=== PATIENT | male | born 1985 | race Caucasian/White ===

== ENCOUNTER 2021-09-22 15:55 | Emergency (ER) | payer OTHER, BC | END 2021-09-22 17:09 | disposition home or self-care (01) | LOC: MW.ED 15:55 | DX: S87.81XA Crushing injury of right lower leg, initial encounter (principal); Z88.0 Allergy status to penicillin; Z88.2 Allergy status to sulfonamides; Z88.7 Allergy status to serum and vaccine; W01.198A Fall on same level from slipping, tripping and stumbling with subsequent striking against other object, initial encounter; Y99.0 Civilian activity done for income or pay | CPT/HCPCS: 73590-26-RT; 73590-RT; 99283; 99283-25 ==

== ENCOUNTER 2023-05-16 22:07 | Inpatient (IN) | payer BC, OTHER ==
[2023-05-16 22:22] LABS: HEMATOCRIT 42.5 % (42.0-52.0); HEMOGLOBIN 14.9 g/dL (14.0-18.0); MEAN CORPUSCULAR HEMOGLOBIN 31.7 pg (28.0-32.0); MEAN CORPUSCULAR HGB CONC 35.1 g/dL (32.0-36.0); MEAN CORPUSCULAR VOLUME 90.4 fL (83.0-99.0); MEAN PLATELET VOLUME 10.4 fL (9.4-12.4); PLATELET COUNT,PLT 147 K/uL (150-400); WHITE BLOOD CELL COUNT,WBC 14.34 K/uL (3.9-11.3)
[2023-05-16] MEDS ORDERED: Sodium Chloride 0.9% 1,000 ML IV ONE (22:27)
[2023-05-16 22:28] LABS: APPEARANCE,URINE CLEAR; COLOR,URINE YELLOW; GLUCOSE,URINE NEGATIVE (NEGATIVE); KETONES,URINE TRACE mg/dL (NEGATIVE); LEUKOCYTE ESTERASE,URINE NEGATIVE (NEGATIVE); NITRITE,URINE NEGATIVE (NEGATIVE); OCCULT BLOOD,URINE NEGATIVE (NEGATIVE); PROTEIN,URINE TRACE mg/dL (NEGATIVE); UROBILINOGEN,URINE >=8.0 EU/dL (<2.0)
[2023-05-16 22:35] LABS: BACTERIA,URINE FEW (NEGATIVE); BILIRUBIN,URINE LARGE (NEGATIVE); EPITHELIAL CELLS,URINE RARE (NONE-FEW); RBC,URINE 0-1 (0-2/HPF); WBC,URINE 0-3 (0-5/HPF)
[2023-05-16] MEDS ORDERED: Acetaminophen 500 MG Tab PO ONE (22:38)
[2023-05-16 22:49] LABS: A/G RATIO 1.2 (0.9-1.6); ALBUMIN 3.8 g/dL (3.4-5.0); BILIRUBIN TOTAL 3.2 mg/dL (0.2-1.0); CALCIUM 8.6 mg/dL (8.5-10.1); CREATININE 1.2 mg/dL (0.8-1.3); EST CRCL DRUG DOSING (CG) 88.9 mL/min; POTASSIUM,K 4.1 mmol/L (3.5-5.1); PROTEIN TOTAL,TP 6.9 g/dL (6.4-8.2)
[2023-05-16 23:08] LABS: CORONAVIRUS COVID-19 NAA NEGATIVE (NEGATIVE); INFLUENZA A NAA NEGATIVE (NEGATIVE); INFLUENZA B NAA NEGATIVE (NEGATIVE); RESPIRATORY SYNCYTIAL VIR NAA NEGATIVE (NEGATIVE)
[2023-05-16] MEDS ORDERED: Ketorolac 30 MG/ML SDV IVPUSH STA (23:16)
[2023-05-17] MEDS ORDERED: metroNIDAZOLE/Normal Saline 500 MG in Premix Bag 1 BAG IV SCH (00:14)
[2023-05-17] MEDS ORDERED: Ciprofloxacin in D5W 400 MG in Premix Bag 1 BAG IV SCH ×2 (00:15)
[2023-05-17] MEDS ORDERED: Ondansetron 4 MG/2 ML SDV IVPUSH ONE (01:33)
[2023-05-17 01:38] LABS: INR 1.15 (0.86-1.11)
[2023-05-17] MEDS ORDERED: Sodium Chloride 0.9% 10 ML Syringe FLUSH PRN (01:40)
[2023-05-17] MEDS ORDERED: Sodium Chloride 0.9% 2.5 ML Syringe FLUSH PRN (01:40)
[2023-05-17] MEDS ORDERED: Albuterol/Ipratropium 3.0-0.5 MG/3 ML Neb Soln NEB PRN (01:40)
[2023-05-17] MEDS ORDERED: Sodium Chloride 0.9% 20 ML SDV IV PRN (01:40)
[2023-05-17] MEDS ORDERED: Ondansetron 4 MG/2 ML SDV IVPUSH PRN (01:40)
[2023-05-17] MEDS ORDERED: Acetaminophen 325 MG Tab PO PRN (01:40)
[2023-05-17] MEDS ORDERED: Promethazine 25 MG/ML SDV IM PRN (01:40)
[2023-05-17] MEDS ORDERED: Lactated Ringers 1,000 ML IV SCH (01:45)
[2023-05-17] MEDS ORDERED: VANCOmycin 2 GM/400 ML 2 GM in Premix Bag 1 BAG IV ONE (02:30)
[2023-05-17] MEDS: Pantoprazole 40 MG in Sodium Chloride 0.9% 10 ML IVPUSH SCH ×2 (02:59→14:45)
[2023-05-17] MEDS: Lactated Ringers 1,000 ML IV SCH ×2 (06:26→16:44)
[2023-05-17 06:56] LABS: A/G RATIO 1.1 (0.9-1.6); ALBUMIN 2.9 g/dL (3.4-5.0); BILIRUBIN TOTAL 2.9 mg/dL (0.2-1.0); CALCIUM 8.1 mg/dL (8.5-10.1); CREATININE 1.1 mg/dL (0.8-1.3); EST CRCL DRUG DOSING (CG) 96.98 mL/min; MAGNESIUM 1.7 mg/dL (1.8-2.4); PHOSPHORUS 2.3 mg/dL (2.6-4.7); POTASSIUM,K 4.3 mmol/L (3.5-5.1); PROTEIN TOTAL,TP 5.6 g/dL (6.4-8.2)
[2023-05-17 07:10] LABS: HEMATOCRIT 37.1 % (42.0-52.0); MEAN CORPUSCULAR HEMOGLOBIN 31.8 pg (28.0-32.0); MEAN CORPUSCULAR VOLUME 90.7 fL (83.0-99.0); MEAN PLATELET VOLUME 10.9 fL (9.4-12.4); RED BLOOD CELL COUNT 4.09 M/uL (4.52-5.90); WHITE BLOOD CELL COUNT,WBC 9.55 K/uL (3.9-11.3)
[2023-05-17 07:12] LABS: PLATELET COUNT,PLT 186 K/uL (150-400)
[2023-05-17 07:14] LABS: BAND ABSOLUTE MAN 1.2; BAND PERCENT MAN 13 %; LYMPHOCYTES ABSOLUTE MAN 5.4 (0.6-2.4); LYMPHOCYTES PERCENT MAN 57 % (16.0-40.0); MONOCYTES PERCENT MAN 10 % (0.0-15.0); SEG NEUTROPHILS ABSOLUTE MAN 1.9 (1.4-5.7); SEG NEUTROPHILS PERCENT MAN 20 % (48.0-80.0)
[2023-05-17] MEDS ORDERED: Magnesium Sulfate/Water 2 GM in Premix Bag 1 BAG IV ONE (08:00)
[2023-05-17] MEDS: Ketorolac 30 MG/ML SDV IV PRN ×2 (08:42→17:42)
[2023-05-17] MEDS ORDERED: Cefepime 2 GM in Sodium Chloride 0.9% 50 ML IV SCH (09:00)
[2023-05-17] MEDS: metroNIDAZOLE/Normal Saline 500 MG in Premix Bag 1 BAG IV SCH ×3 (12:18→23:23)
[2023-05-17] MEDS: cefTRIAXone 1 GM in Sodium Chloride 0.9% 50 ML IV SCH (20:20)
[2023-05-18] MEDS: Pantoprazole 40 MG in Sodium Chloride 0.9% 10 ML IVPUSH SCH (01:13)
[2023-05-18] MEDS: Lactated Ringers 1,000 ML IV SCH ×2 (03:50→14:00)
[2023-05-18] MEDS: metroNIDAZOLE/Normal Saline 500 MG in Premix Bag 1 BAG IV SCH ×3 (05:06→21:49)
[2023-05-18 05:32] LABS: HEMATOCRIT 38.2 % (42.0-52.0); HEMOGLOBIN 13.3 g/dL (14.0-18.0); MEAN CORPUSCULAR HEMOGLOBIN 31.3 pg (28.0-32.0); MEAN CORPUSCULAR HGB CONC 34.8 g/dL (32.0-36.0); MEAN CORPUSCULAR VOLUME 89.9 fL (83.0-99.0); MEAN PLATELET VOLUME 10.3 fL (9.4-12.4); PLATELET COUNT,PLT 135 K/uL (150-400); RED BLOOD CELL COUNT 4.25 M/uL (4.52-5.90); WHITE BLOOD CELL COUNT,WBC 10.78 K/uL (3.9-11.3)
[2023-05-18 05:51] LABS: INR 1.22 (0.86-1.11)
[2023-05-18 05:53] LABS: ALBUMIN 2.7 g/dL (3.4-5.0); CALCIUM 7.8 mg/dL (8.5-10.1); CARBON DIOXIDE,CO2 26.3 mmol/L (21.0-32.0); EST CRCL DRUG DOSING (CG) 106.68 mL/min; POTASSIUM,K 4.3 mmol/L (3.5-5.1); PROTEIN TOTAL,TP 5.5 g/dL (6.4-8.2)
[2023-05-18 06:20] LABS: BAND ABSOLUTE MAN 0.11; BAND PERCENT MAN 1 %; SEG NEUTROPHILS ABSOLUTE MAN 3.13 K/uL (1.80-7.70); SEG NEUTROPHILS PERCENT MAN 29 % (41-71)
[2023-05-18 06:21] LABS: EOSINOPHILS ABSOLUTE MAN 0.11 K/uL (0.00-0.45); EOSINOPHILS PERCENT MAN 1 % (0-6); MONOCYTES ABSOLUTE MAN 1.29 K/uL (0.00-0.80); MONOCYTES PERCENT MAN 12 % (0-8)
[2023-05-18 06:22] LABS: LYMPHOCYTES ABSOLUTE MAN 6.14 K/uL (1.00-4.80); LYMPHOCYTES PERCENT MAN 57 % (24-44)
[2023-05-18 09:07] LABS: NEUTROPHILS% 28 % (41-71)
[2023-05-18] MEDS: Ketorolac 30 MG/ML SDV IV PRN (19:41)
[2023-05-18] MEDS ORDERED: Pantoprazole 40 MG in Sodium Chloride 0.9% 10 ML IVPUSH SCH (21:00)
[2023-05-18] MEDS: cefTRIAXone 1 GM in Sodium Chloride 0.9% 50 ML IV SCH (21:49)
[2023-05-19] MEDS: Lactated Ringers 1,000 ML IV SCH (01:01)
[2023-05-19 07:06] LABS: A/G RATIO 0.9 (0.9-1.6); ALBUMIN 2.6 g/dL (3.4-5.0); BILIRUBIN TOTAL 4.2 mg/dL (0.2-1.0); CALCIUM 7.7 mg/dL (8.5-10.1); CARBON DIOXIDE,CO2 27.5 mmol/L (21.0-32.0); EST CRCL DRUG DOSING (CG) 106.68 mL/min; PROTEIN TOTAL,TP 5.4 g/dL (6.4-8.2)
[2023-05-19 07:24] LABS: INR 1.17 (0.86-1.11)
[2023-05-19 07:32] LABS: HEMOGLOBIN 13.6 g/dL (14.0-18.0); MEAN CORPUSCULAR HEMOGLOBIN 31.3 pg (28.0-32.0); MEAN CORPUSCULAR HGB CONC 34.9 g/dL (32.0-36.0); MEAN CORPUSCULAR VOLUME 89.9 fL (83.0-99.0); MEAN PLATELET VOLUME 10.4 fL (9.4-12.4); PLATELET COUNT,PLT 157 K/uL (150-400); RED BLOOD CELL COUNT 4.34 M/uL (4.52-5.90); WHITE BLOOD CELL COUNT,WBC 13.39 K/uL (3.9-11.3)
[2023-05-19 07:52] LABS: POTASSIUM,K 4.4 mmol/L (3.5-5.1)
[2023-05-19 08:10] LABS: LYMPHOCYTES ABSOLUTE MAN 7.36 K/uL (1.00-4.80); LYMPHOCYTES PERCENT MAN 55 % (24-44); MONOCYTES ABSOLUTE MAN 1.61 K/uL (0.00-0.80); MONOCYTES PERCENT MAN 12 % (0-8); REACTIVE LYMPHOCYTES MANY; SEG NEUTROPHILS ABSOLUTE MAN 4.42 K/uL (1.80-7.70); SEG NEUTROPHILS PERCENT MAN 33 % (41-71)
[2023-05-19 12:07] LABS: HBSAG SCREEN Negative (Negative); HCV AB Non Reactive (Non Reactive); HEP A AB, IGM Negative (Negative); HEP B CORE AB, IGM Negative (Negative)
== END 2023-05-19 12:55 | disposition home or self-care (01) ==
LOC: MW.ED 22:07 → MW.MS 05-17 01:34 → OBSVTOIN 05-17 01:34 → MW.MS 05-18 13:35
PROVIDERS: ADMIT Family Medicine; ATTEND Family Medicine
DX: B17.9 Acute viral hepatitis, unspecified (principal); B27.90 Infectious mononucleosis, unspecified without complication; R16.0 Hepatomegaly, not elsewhere classified; I10 Essential (primary) hypertension; K76.0 Fatty (change of) liver, not elsewhere classified; R74.01 Elevation of levels of liver transaminase levels; R50.9 Fever, unspecified; E80.6 Other disorders of bilirubin metabolism; K29.80 Duodenitis without bleeding; K27.9 Peptic ulcer, site unspecified, unspecified as acute or chronic, without hemorrhage or perforation; Z90.49 Acquired absence of other specified parts of digestive tract; Z11.52 Encounter for screening for COVID-19; Z88.0 Allergy status to penicillin; Z88.8 Allergy status to other drugs, medicaments and biological substances; Z91.041 Radiographic dye allergy status; Z88.5 Allergy status to narcotic agent; Z88.2 Allergy status to sulfonamides; Z88.7 Allergy status to serum and vaccine; Z91.018 Allergy to other foods; Z98.890 Other specified postprocedural states
CPT/HCPCS: 0241U; 36415; 74176; 74176-26; 74181; 74181-26; 76705; 76705-26; 80053; 80061; 80074; 81001; 82947; 83605; 83690; 83735; 84100; 85025; 85610; 86308; 87389; 96361; 96365; 96366; 96367; 96368; 96375; 96376; 99284; 99285-25; A9270-GY; C9113; G0378; J0692; J0696; J0744; J1885; J2405; J3370; J3475; J3490; J7030; J7120

== ENCOUNTER 2023-05-19 17:37 | Emergency (ER) | payer BC ==
[2023-05-19] MEDS ORDERED: Ondansetron 4 MG/2 ML SDV IVPUSH ONE (18:35)
[2023-05-19] MEDS ORDERED: Sodium Chloride 0.9% 1,000 ML IV ONE ×2 (18:35→20:01)
[2023-05-19] MEDS ORDERED: Ketorolac 30 MG/ML SDV IVPUSH ONE (18:35)
[2023-05-19 19:15] LABS: HEMATOCRIT 39.6 % (42.0-52.0); HEMOGLOBIN 13.7 g/dL (14.0-18.0); MEAN CORPUSCULAR HEMOGLOBIN 31.3 pg (28.0-32.0); MEAN CORPUSCULAR HGB CONC 34.6 g/dL (32.0-36.0); MEAN CORPUSCULAR VOLUME 90.4 fL (83.0-99.0); MEAN PLATELET VOLUME 10.3 fL (9.4-12.4); PLATELET COUNT,PLT 162 K/uL (150-400); RED BLOOD CELL COUNT 4.38 M/uL (4.52-5.90)
[2023-05-19 19:43] LABS: ALBUMIN 2.8 g/dL (3.4-5.0); BILIRUBIN TOTAL 4.5 mg/dL (0.2-1.0); CALCIUM 7.9 mg/dL (8.5-10.1); CARBON DIOXIDE,CO2 29.1 mmol/L (21.0-32.0); CREATININE 1.1 mg/dL (0.8-1.3); EST CRCL DRUG DOSING (CG) 96.98 mL/min; MAGNESIUM 2.1 mg/dL (1.8-2.4); POTASSIUM,K 4.3 mmol/L (3.5-5.1); PROTEIN TOTAL,TP 5.7 g/dL (6.4-8.2)
[2023-05-19 19:49] LABS: BAND PERCENT MAN 5 %
[2023-05-19 19:50] LABS: LYMPHOCYTES % ATYPICAL MANUAL 5; MONOCYTES ABSOLUTE MAN 1.26 K/uL (0.00-0.80); MONOCYTES PERCENT MAN 9 % (0-8); SEG NEUTROPHILS PERCENT MAN 25 % (41-71)
[2023-05-19 19:51] LABS: LYMPHOCYTES ABSOLUTE MAN 7.84 K/uL (1.00-4.80); LYMPHOCYTES PERCENT MAN 56 % (24-44)
[2023-05-19] MEDS ORDERED: diphenhydrAMINE 50 MG/ML SDV IVPUSH ONE (20:11)
[2023-05-19] MEDS ORDERED: methylPREDNISolone Sodium Succinate 125 MG/2 ML SDV IVPUSH ONE (20:11)
[2023-05-19] MEDS ORDERED: Iopamidol 755 MG/ML 500 ML Multipack Bottle IVPUSH ONE (22:38)
[2023-05-20] MEDS ORDERED: Ondansetron 4 MG/2 ML SDV IVPUSH ONE (00:37)
== END 2023-05-20 01:00 | disposition home or self-care (01) ==
LOC: MW.ED 17:37
DX: B27.90 Infectious mononucleosis, unspecified without complication (principal); K75.9 Inflammatory liver disease, unspecified; Z88.0 Allergy status to penicillin; Z88.1 Allergy status to other antibiotic agents; Z88.8 Allergy status to other drugs, medicaments and biological substances; Z91.018 Allergy to other foods; Z91.048 Other nonmedicinal substance allergy status; Z88.5 Allergy status to narcotic agent; Z88.7 Allergy status to serum and vaccine; Z88.2 Allergy status to sulfonamides
CPT/HCPCS: 36415; 74177; 80053; 83690; 83735; 85025; 96361; 96374; 96375; 96376; 99285; J1200; J1885; J2405; J2930; J7030; Q9967

== ENCOUNTER 2023-09-06 23:10 | Emergency (ER) | payer BC ==
[2023-09-06] MEDS: Sodium Chloride 0.9% 1,000 ML IV ONE (23:16)
[2023-09-06] MEDS: EPINEPHrine 1 MG/1 ML Amp IM ONE (23:16)
[2023-09-06] MEDS: Sodium Chloride 0.9% 10 ML Syringe FLUSH PRN (23:19)
[2023-09-06] MEDS: EPINEPHrine 1 MG/1 ML Amp ONE (23:19)
[2023-09-06] MEDS: Sodium Chloride 0.9% 2.5 ML Syringe FLUSH PRN (23:19)
[2023-09-06] MEDS: Ondansetron 4 MG/2 ML SDV IVPUSH ONE (23:21)
[2023-09-06] MEDS: methylPREDNISolone Sodium Succinate 125 MG/2 ML SDV IVPUSH ONE (23:21)
[2023-09-06] MEDS: Famotidine 20 MG/2 ML SDV IVPUSH ONE (23:21)
[2023-09-06 23:23] LABS: BASOPHILS ABSOLUTE AUTO 0.05 K/uL (0.00-0.20); BASOPHILS PERCENT AUTO 0.3 % (0.0-1.0); EOSINOPHILS ABSOLUTE AUTO 0.16 K/uL (0.00-0.45); HEMATOCRIT 49.2 % (42.0-52.0); IMMATURE GRAN PERCENT AUTO 0.6 % (0.0-0.4); LYMPHOCYTES ABSOLUTE AUTO 4.87 K/uL (1.00-4.80); LYMPHOCYTES PERCENT AUTO 31.2 % (24.0-44.0); MEAN CORPUSCULAR HEMOGLOBIN 30.1 pg (28.0-32.0); MEAN CORPUSCULAR HGB CONC 34.6 g/dL (32.0-36.0); MEAN CORPUSCULAR VOLUME 87.1 fL (83.0-99.0); MEAN PLATELET VOLUME 9.1 fL (9.4-12.4); MONOCYTES ABSOLUTE AUTO 1.39 K/uL (0.00-0.80); MONOCYTES PERCENT AUTO 8.9 % (0.0-8.0); NEUTROPHILS ABSOLUTE AUTO 9.04 K/uL (1.80-7.70); PLATELET COUNT,PLT 221 K/uL (150-400); RED BLOOD CELL COUNT 5.65 M/uL (4.52-5.90); WHITE BLOOD CELL COUNT,WBC 15.61 K/uL (3.9-11.3)
[2023-09-07 00:06] LABS: BLOOD UREA NITROGEN,BUN 12 mg/dL (7.0-18.0); CALCIUM 9.2 mg/dL (8.5-10.1); CARBON DIOXIDE,CO2 28.7 mmol/L (21.0-32.0); CHLORIDE,CL 102 mmol/L (98-107); GLUCOSE RANDOM 122 mg/dL (74-106); SODIUM,NA 142 mmol/L (136-148)
[2023-09-07 00:07] LABS: ESTIMATED GFR 98 mL/min (>60)
== END 2023-09-07 03:16 | disposition home or self-care (01) ==
LOC: MW.ED 23:10
DX: T78.2XXA Anaphylactic shock, unspecified, initial encounter (principal); Z88.0 Allergy status to penicillin; Z88.1 Allergy status to other antibiotic agents; Z88.2 Allergy status to sulfonamides; Z91.011 Allergy to milk products; Z88.7 Allergy status to serum and vaccine; Z91.018 Allergy to other foods; Z91.048 Other nonmedicinal substance allergy status; Z88.5 Allergy status to narcotic agent; Z79.899 Other long term (current) drug therapy; Z90.49 Acquired absence of other specified parts of digestive tract
CPT/HCPCS: 36415; 70490; 80048; 85025; 96372; 96374; 96375; 99284; J0171; J2405; J2930; J3490; J7030; 99291

== ENCOUNTER 2024-02-17 10:35 | Emergency (ER) | payer OTHER, BC ==
[2024-02-17] MEDS: Lidocaine 1% 5 ML VIAL INJECT ONE (11:04)
[2024-02-17] MEDS: Acetaminophen 500 MG Tab PO ONE (11:04)
[2024-02-17] MEDS: Bacitracin Oint 1 GM U/D Packet TOP ONE (12:12)
== END 2024-02-17 12:12 | disposition home or self-care (01) ==
LOC: MW.ED 10:35
DX: S61.211A Laceration without foreign body of left index finger without damage to nail, initial encounter (principal); Z88.0 Allergy status to penicillin; Z91.018 Allergy to other foods; Z88.8 Allergy status to other drugs, medicaments and biological substances; Z91.011 Allergy to milk products; Z91.041 Radiographic dye allergy status; Z91.048 Other nonmedicinal substance allergy status; Z88.7 Allergy status to serum and vaccine; Z88.5 Allergy status to narcotic agent; Z79.899 Other long term (current) drug therapy; Z90.49 Acquired absence of other specified parts of digestive tract; W22.8XXA Striking against or struck by other objects, initial encounter; Y93.89 Activity, other specified
CPT/HCPCS: 12001; 73130; 99283; A9270; 12031; J3490

== ENCOUNTER 2024-02-27 04:46 | Emergency (ER) | payer OTHER, BC | END 2024-02-27 05:03 | disposition home or self-care (01) | LOC: MW.ED 04:46 | DX: S61.211D Laceration without foreign body of left index finger without damage to nail, subsequent encounter (principal); Z48.02 Encounter for removal of sutures | CPT/HCPCS: 99281 ==

== ENCOUNTER 2024-02-27 16:10 | Emergency (ER) | payer BC, OTHER | END 2024-02-27 18:22 | disposition home or self-care (01) | LOC: MW.ED 16:10 | DX: S97.82XA Crushing injury of left foot, initial encounter (principal); Z90.49 Acquired absence of other specified parts of digestive tract; Z88.0 Allergy status to penicillin; Z88.2 Allergy status to sulfonamides; Z88.7 Allergy status to serum and vaccine; Z88.5 Allergy status to narcotic agent; Z91.018 Allergy to other foods; Z88.1 Allergy status to other antibiotic agents; Z91.048 Other nonmedicinal substance allergy status; Z91.011 Allergy to milk products; W22.8XXA Striking against or struck by other objects, initial encounter | CPT/HCPCS: 73620-26-LT; 73620-LT; 99283 ==